=== PATIENT | female | born 1950 | race Caucasian/White ===

== ENCOUNTER 2023-10-08 19:16 | Inpatient (IN) | payer MEDICARE ==
[~2023-10-08] VITALS: Ht 154.9 cm; Wt 69.4 kg
[2023-10-08] MEDS ORDERED: CEFEPIME HCL 1 GM VIAL ONE (20:38)
[2023-10-08] MEDS: SODIUM CHLORIDE 0.9% 1000ML 1,000 ML IV SCH (21:29)
[2023-10-08 23:20] VITALS: BP 145/84; PULSE 71; RESP 16; TEMP 98.3; O2SAT 100
[2023-10-08 23:35] VITALS: BP 145/84; PULSE 71; RESP 16; TEMP 98.3; O2SAT 100
[2023-10-09] VITALS (8 sets, daily range): BP systolic 109–154; BP diastolic 56–67; PULSE 71–92; RESP 17–19; TEMP 99–102.4; O2SAT 96–100
[2023-10-09] MEDS ORDERED: ALLEGRA-D 24 H1 EACH PO (01:04)
[2023-10-09] MEDS ORDERED: ASPIRIN81 MG PO (01:04)
[2023-10-09] MEDS ORDERED: ROLAIDS ADV 101 EACH (01:04)
[2023-10-09] MEDS ORDERED: BENADRYL25 M1 PO (01:04)
[2023-10-09] MEDS ORDERED: LEVOTHYROXINE50 MCG PO ×2 (01:04)
[2023-10-09] MEDS ORDERED: MUCINEX600 MG PO (01:04)
[2023-10-09] MEDS ORDERED: FASENRA30 MG/1 ML (01:04)
[2023-10-09] MEDS ORDERED: ALBUTEROL0.63 MG/3 NEB (01:04)
[2023-10-09] MEDS ORDERED: FLONASE ALLERG9.9 ML INH (01:04)
[2023-10-09] MEDS ORDERED: VITAMIN D250 MC1 (01:04)
[2023-10-09] MEDS ORDERED: TRELEGY ELLIPT1 EAC1 (01:04)
[2023-10-09] MEDS ORDERED: IRBESARTAN150 MG PO (01:04)
[2023-10-09] MEDS ORDERED: OMEPRAZOLE40 MG PO (01:04)
[2023-10-09] MEDS ORDERED: METOPROLOL SUCC50 MG PO (01:04)
[2023-10-09] MEDS ORDERED: POTASSIUM CHLO10 ME1 PO (01:04)
[2023-10-09] MEDS ORDERED: PLAVIX75 MG PO (01:04)
[2023-10-09] MEDS ORDERED: FAMOTIDINE20 MG PO (01:04)
[2023-10-09] MEDS ORDERED: CRESTOR10 MG PO (01:04)
[2023-10-09] MEDS ORDERED: ALBUTEROL0.63 MG/3 INH (01:39)
[2023-10-09] MEDS: ACETAMINOPHEN 325 MG TAB ONE (01:50)
[2023-10-09] MEDS: ACETAMINOPHEN 325 MG TAB PO PRN ×2 (01:50→17:31)
[2023-10-09 05:29] LABS: BASOPHILS % 0.1 % (0.0-1.0); HEMATOCRIT 34.9 % (34.2-44.1); HEMOGLOBIN 11.2 g/dL (12.0-16.0); LYMPHOCYTES # (AUTO) 0.8 (1.0-3.2); LYMPHOCYTES % 7.8 % (18.0-39.1); MEAN CORPUSCULAR HEMOGLOBIN 28.8 pg (28-32); MEAN CORPUSCULAR HGB CONC 32.1 g/dL (31-35); MEAN CORPUSCULAR VOLUME 89.7 fL (81-99); MONOCYTES # (AUTO) 1.3 (0.2-0.8); MONOCYTES % 13.1 % (4.4-11.3); NEUTROPHILS # (AUTO) 7.7 (2.1-6.9); NEUTROPHILS % 78.5 % (38.7-80.0); PLATELET COUNT 220 x10e3/uL (140-360); RED BLOOD COUNT 3.89 x10e6/uL (3.6-5.1); RED CELL DISTRIBUTION WIDTH 13.7 % (11.7-14.4); WHITE BLOOD COUNT 9.76 x10e3/uL (4.8-10.8)
[2023-10-09 06:10] LABS: ANION GAP 13.5 mmol/L (8-16); CALCIUM 8.5 mg/dL (8.4-10.2); CREATININE, SERUM 0.73 mg/dL (0.57-1.11); POTASSIUM 3.5 mmol/L (3.5-5.1)
[2023-10-09] MEDS ORDERED: ONDANSETRON HCL INJ 2MG/ML 2ML 2 MG/ML VIAL IV PRN (12:30)
[2023-10-09] MEDS ORDERED: GUAIFENESIN 600 MG TAB PO PRN (12:30)
[2023-10-09] MEDS ORDERED: IOPAMIDOL 370 MG/ML 100 ML INFUS..BTL INJ ONE (13:32)
[2023-10-09] MEDS ORDERED: SODIUM CHLORIDE 0.9% 250ML 250 ML ONE (13:33)
[2023-10-09] MEDS: IRBESARTAN 150 MG TAB PO SCH (14:44)
[2023-10-09] MEDS: CLOPIDOGREL BISULFATE 75 MG TAB PO SCH (14:44)
[2023-10-09] MEDS: SENNOSIDES 8.6 MG TAB PO SCH (14:44)
[2023-10-09] MEDS: ASPIRIN 81 MG CHEW TAB PO SCH (14:45)
[2023-10-09] MEDS: ENOXAPARIN SOD INJ 40 MG/0.4 ML SYR SC SCH (17:31)
[2023-10-09] MEDS: METOPROLOL SUCCINATE 50 MG TAB XL PO SCH (17:31)
[2023-10-09] MEDS ORDERED: SIMVASTATIN 40 MG TAB PO SCH (21:00)
[2023-10-09] MEDS: CRESTOR 10MG PO SCH (21:28)
[2023-10-09] MEDS: FAMOTIDINE 20 MG TAB PO SCH (21:29)
[2023-10-10] VITALS (9 sets, daily range): BP systolic 124–139; BP diastolic 61–75; PULSE 70–81; RESP 17–19; TEMP 97.7–100.3; O2SAT 97–100
[2023-10-10] MEDS: LEVOTHYROXINE SODIUM 50 MCG TAB PO SCH (07:13)
[2023-10-10 07:46] LABS: BASOPHILS % 0.2 % (0.0-1.0); HEMATOCRIT 33.5 % (34.2-44.1); HEMOGLOBIN 10.7 g/dL (12.0-16.0); LYMPHOCYTES # (AUTO) 0.7 (1.0-3.2); LYMPHOCYTES % 10.4 % (18.0-39.1); MEAN CORPUSCULAR HEMOGLOBIN 28.7 pg (28-32); MEAN CORPUSCULAR HGB CONC 31.9 g/dL (31-35); MEAN CORPUSCULAR VOLUME 89.8 fL (81-99); MONOCYTES # (AUTO) 0.9 (0.2-0.8); MONOCYTES % 13.6 % (4.4-11.3); NEUTROPHILS # (AUTO) 4.7 (2.1-6.9); NEUTROPHILS % 75.5 % (38.7-80.0); PLATELET COUNT 186 x10e3/uL (140-360); RED BLOOD COUNT 3.73 x10e6/uL (3.6-5.1); RED CELL DISTRIBUTION WIDTH 13.4 % (11.7-14.4); WHITE BLOOD COUNT 6.27 x10e3/uL (4.8-10.8)
[2023-10-10 08:02] LABS: ALBUMIN 2.8 g/dL (3.5-5.0); ALBUMIN/GLOBULIN RATIO 0.9 (0.8-2.0); ANION GAP 14.6 mmol/L (8-16); BILIRUBIN,TOTAL 0.4 mg/dL (0.2-1.2); CREATININE, SERUM 0.62 mg/dL (0.57-1.11); POTASSIUM 3.6 mmol/L (3.5-5.1)
[2023-10-10] MEDS: PANTOPRAZOLE SOD 40 MG TABEC PO SCH (10:46)
[2023-10-10] MEDS: POTASSIUM CHLORIDE 10MEQ EA PO SCH (10:46)
[2023-10-10] MEDS: DOCUSATE SODIUM 100 MG CAP PO SCH (10:47)
[2023-10-10] MEDS ORDERED: ONDANSETRON HCL 4 MG ORAL DISINTEGRATING TAB PO PRN (13:00)
[2023-10-10] MEDS ORDERED: MEROPENEM 1 GM in SODIUM CHLORIDE 0.9% 100 ML IV SCH (14:00)
[2023-10-11] VITALS (9 sets, daily range): BP systolic 115–178; BP diastolic 64–76; PULSE 71–100; RESP 18–20; TEMP 96.5–99.1; O2SAT 96–99
[2023-10-11] MEDS: HYDRALAZINE HCL 20 MG/ML VIAL IV PRN (00:38)
[2023-10-11 06:21] LABS: HEMOGLOBIN 11.3 g/dL (12.0-16.0); LYMPHOCYTES # (AUTO) 0.7 (1.0-3.2); LYMPHOCYTES % 12.7 % (18.0-39.1); MEAN CORPUSCULAR HEMOGLOBIN 28.6 pg (28-32); MEAN CORPUSCULAR HGB CONC 32.3 g/dL (31-35); MEAN CORPUSCULAR VOLUME 88.6 fL (81-99); MONOCYTES # (AUTO) 0.9 (0.2-0.8); MONOCYTES % 15.4 % (4.4-11.3); NEUTROPHILS % 71.7 % (38.7-80.0); PLATELET COUNT 208 x10e3/uL (140-360); RED BLOOD COUNT 3.95 x10e6/uL (3.6-5.1); RED CELL DISTRIBUTION WIDTH 13.3 % (11.7-14.4)
[2023-10-11 06:47] LABS: ALBUMIN 2.8 g/dL (3.5-5.0); ALBUMIN/GLOBULIN RATIO 0.8 (0.8-2.0); ANION GAP 14.4 mmol/L (8-16); BILIRUBIN,TOTAL 0.4 mg/dL (0.2-1.2); CALCIUM 8.4 mg/dL (8.4-10.2); CREATININE, SERUM 0.7 mg/dL (0.57-1.11); TOTAL PROTEIN 6.2 g/dL (6.5-8.1)
[2023-10-11 07:05] LABS: POTASSIUM 3.4 mmol/L (3.5-5.1)
[2023-10-11 09:06] LABS: LYMPHOCYTES % (MANUAL) 15 % (19-48); MONOCYTES % (MANUAL) 11 % (3.4-9.0); NEUTROPHILS % (MANUAL) 74 % (40-74); PLATELET ESTIMATE ADEQUATE; PLATELET MORPHOLOGY COMMENT NORMAL; RBC MORPHOLOGY COMMENT NORMAL
[2023-10-11] MEDS ORDERED: HYDRALAZINE HCL 20 MG/ML VIAL IV PRN (09:30)
[2023-10-11] MEDS: ACETAMIN/BUTALBITAL/CAFFEINE TAB PO ONE (10:33)
[2023-10-12] VITALS (9 sets, daily range): BP systolic 120–154; BP diastolic 71–88; PULSE 65–84; RESP 16–18; TEMP 97.5–98.4; O2SAT 94–99
[2023-10-12 05:09] LABS: BASOPHILS % 0.2 % (0.0-1.0); HEMATOCRIT 34.8 % (34.2-44.1); HEMOGLOBIN 11.7 g/dL (12.0-16.0); LYMPHOCYTES # (AUTO) 1.2 (1.0-3.2); LYMPHOCYTES % 25.2 % (18.0-39.1); MEAN CORPUSCULAR HEMOGLOBIN 29.1 pg (28-32); MEAN CORPUSCULAR HGB CONC 33.6 g/dL (31-35); MEAN CORPUSCULAR VOLUME 86.6 fL (81-99); MONOCYTES % 20.9 % (4.4-11.3); NEUTROPHILS # (AUTO) 2.5 (2.1-6.9); NEUTROPHILS % 53.5 % (38.7-80.0); PLATELET COUNT 223 x10e3/uL (140-360); RED BLOOD COUNT 4.02 x10e6/uL (3.6-5.1); RED CELL DISTRIBUTION WIDTH 13.6 % (11.7-14.4); WHITE BLOOD COUNT 4.68 x10e3/uL (4.8-10.8)
[2023-10-12] MEDS: LEVOTHYROXINE SODIUM 25 MCG TABLET PO SCH (05:47)
[2023-10-12 05:55] LABS: ALBUMIN 2.8 g/dL (3.5-5.0); ALBUMIN/GLOBULIN RATIO 0.9 (0.8-2.0); ANION GAP 12.7 mmol/L (8-16); BILIRUBIN,TOTAL 0.2 mg/dL (0.2-1.2); CALCIUM 8.3 mg/dL (8.4-10.2); CREATININE, SERUM 0.72 mg/dL (0.57-1.11); POTASSIUM 3.7 mmol/L (3.5-5.1); TOTAL PROTEIN 5.8 g/dL (6.5-8.1)
[2023-10-12 11:09] LABS: LYMPHOCYTES % (MANUAL) 28 % (19-48); MONOCYTES % (MANUAL) 14 % (3.4-9.0); NEUTROPHILS % (MANUAL) 58 % (40-74)
[2023-10-12 11:10] LABS: PLATELET ESTIMATE ADEQUATE; PLATELET MORPHOLOGY COMMENT NORMAL; RBC MORPHOLOGY COMMENT NORMAL
[2023-10-12] MEDS: ALBUTEROL SULF 0.083% NEB SOLN 3 ML NEB NEB PRN (14:05)
[2023-10-13 00:17] VITALS: BP 124/75; PULSE 71; RESP 20; TEMP 98.2; O2SAT 98
[2023-10-13 04:00] VITALS: BP 134/74; PULSE 72; RESP 17; TEMP 98.2; O2SAT 97
[2023-10-13 07:41] VITALS: BP 121/77; PULSE 71; RESP 18; TEMP 97.4; O2SAT 98
[2023-10-13 07:59] VITALS: BP 121/77; PULSE 71; RESP 18; TEMP 97.4; O2SAT 98
[2023-10-13 11:51] VITALS: BP 138/65; PULSE 71; RESP 19; TEMP 97.2; O2SAT 99
[2023-10-13 16:03] VITALS: BP 156/67; PULSE 72; RESP 16; TEMP 98.6; O2SAT 98
== END 2023-10-13 18:38 | disposition home or self-care (01) | DRG 690 ==
LOC: FSED 19:24 → ERHOLD 20:41 → MED/SURG2 21:59
PROVIDERS: ADMIT Internal Medicine; ATTEND Internal Medicine
PROC: 02HV33Z Insertion of Infusion Device into Superior Vena Cava, Percutaneous Approach (ICD-10-PCS; principal; 2023-10-12)
DX: N39.0 Urinary tract infection, site not specified (principal); Z16.12 Extended spectrum beta lactamase (ESBL) resistance; N10 Acute pyelonephritis; I11.9 Hypertensive heart disease without heart failure; E03.9 Hypothyroidism, unspecified; I25.10 Atherosclerotic heart disease of native coronary artery without angina pectoris; J47.9 Bronchiectasis, uncomplicated; J45.20 Mild intermittent asthma, uncomplicated; E78.2 Mixed hyperlipidemia; M81.0 Age-related osteoporosis without current pathological fracture; B96.20 Unspecified Escherichia coli [E. coli] as the cause of diseases classified elsewhere; N28.89 Other specified disorders of kidney and ureter; K44.9 Diaphragmatic hernia without obstruction or gangrene; R91.1 Solitary pulmonary nodule; E66.9 Obesity, unspecified; Z68.28 Body mass index [BMI] 28.0-28.9, adult; Z11.52 Encounter for screening for COVID-19; Z79.82 Long term (current) use of aspirin; Z79.02 Long term (current) use of antithrombotics/antiplatelets; Z79.890 Hormone replacement therapy; Z95.5 Presence of coronary angioplasty implant and graft; Z88.2 Allergy status to sulfonamides; Z88.1 Allergy status to other antibiotic agents; Z91.010 Allergy to peanuts; Z91.012 Allergy to eggs; Z91.018 Allergy to other foods
CPT/HCPCS: 36415; 36569; 71045; 74178; 80048; 80053; 81003; 83605; 83735; 85025; 87040; 87086; 87186; 94640; 94799; 99284; J0360; J0692; J1335; J1650; J2543; J7030; J7050; Q0162; Q9967

== ENCOUNTER 2025-02-15 14:33 | Emergency (ER) | payer MEDICARE ==
[~2025-02-15] VITALS: Ht 147.3 cm; Wt 75.3 kg
[~2025-02-15 14:33] MED LIST: ALBUTEROL0.63 MG/3 INH; ALBUTEROL0.63 MG/3 NEB; ALLEGRA-D 24 H1 EACH PO; ASPIRIN81 MG PO; BENADRYL25 M1 PO; CRESTOR10 MG PO; FAMOTIDINE20 MG PO; FASENRA30 MG/1 ML; FLONASE ALLERG9.9 ML INH; IRBESARTAN150 MG PO; LEVOTHYROXINE50 MCG PO; METOPROLOL SUCC50 MG PO; MUCINEX600 MG PO; OMEPRAZOLE40 MG PO; PLAVIX75 MG PO; POTASSIUM CHLO10 ME1 PO; ROLAIDS ADV 101 EACH; TRELEGY ELLIPT1 EAC1; VITAMIN D250 MC1
[2025-02-15 16:58] VITALS: BP 127/82; PULSE 88; RESP 20
[2025-02-15 17:02] VITALS: PULSE 88; RESP 20; TEMP 98.1; O2SAT 98
== END 2025-02-15 16:55 | disposition home or self-care (01) ==
LOC: ER 14:50
DX: S00.83XA Contusion of other part of head, initial encounter (principal); W01.198A Fall on same level from slipping, tripping and stumbling with subsequent striking against other object, initial encounter; Y93.73 Activity, racquet and hand sports; Y92.89 Other specified places as the place of occurrence of the external cause; I10 Essential (primary) hypertension; E11.9 Type 2 diabetes mellitus without complications; E78.5 Hyperlipidemia, unspecified; I25.10 Atherosclerotic heart disease of native coronary artery without angina pectoris; E03.9 Hypothyroidism, unspecified; M81.0 Age-related osteoporosis without current pathological fracture
CPT/HCPCS: 70450; 72125; 99283